=== PATIENT | female | born 1950 | race Caucasian/White ===

== ENCOUNTER 2019-01-21 21:46 | Emergency (ER) | payer OTHER, MEDICAID ==
--- NOTE | 2019-01-21 21:51 | EDPHY ---
H & P Time Seen by Provider: 01/21/19 21:47 Constitutional: Initial Vital Signs Temperature (C) 36.2 C 01/21/19 21:50 Heart Rate 101 H 01/21/19 21:50 Respiratory Rate 20 01/21/19 21:50 Blood Pressure 163/108 H 01/21/19 21:50 O2 Sat (%) 95 01/21/19 21:50 O2 Delivery Mode Room Air Allergies/Adverse Reactions: No Known Allergies Allergy (Unverified 01/21/19 21:50) Home Medications: Medication Instructions Recorded Diazepam [Valium 5 MG (*)] 01/21/19 chlorproMAZINE HCL [Chlorpromazine 01/21/19 HCl] traZODone [traZODONE 50MG (*)] 01/21/19 Medical Decision Making ED Course/Re-evaluation: CHIEF COMPLAINT: alcohol intoxication HISTORY OF PRESENT ILLNESS: The patient is a 68 y/o female with a history of alcoholism arriving via EMS for alcohol intoxication today. The patient is a chronic alcoholic. Patient drinks on a daily basis and obtains whatever alcohol is available. Patient was found by her sister who called EMS system. Patient has had multiple ER visits over the last several years for the same complaint. Patient denies any injuries denies loss of consciousness denies any recent trauma. Patient denies coingestion patient denies suicidal or homicidal behavior. No fever, headache, body aches, lightheadedness, chest pain, heart palpitations, shortness of breath , cough, abdominal pain, urinary or bowel complaints, numbness, paresthesias. REVIEW OF SYSTEMS: A 10 point review of systems was performed and is negative with the exception of the elements mentioned in the history of present illness. PHYSICAL EXAM: General Appearance: Slurred speech, appears intoxicated, alert, well hydrated, and non-toxic appearing. Head: Atraumatic without scalp tenderness or obvious injury Eyes: Pupils equal, round, reactive to light and accommodation, EOMI, no trauma , no injection. Ears: Clear bilaterally, no perforation, normal landmarks Nose: Atraumatic, no rhinorrhea, clear. Throat: There is no erythema or exudates, no lesions, normal tonsils, mucus membranes moist. Neck: Supple, 2+ carotid upstroke, non-tender, no lymphadenopathy. Respiratory: No retractions, no distress, no wheezes, and no accessory muscle use. Lungs are clear to auscultation bilaterally. Cardiovascular: Regular rate and rhythm, no murmurs, rubs, or gallops. Bilateral carotid, radial, dorsalis pedis, and posterior tibial pulses intact. Good capillary refill all extremities. Gastrointestinal: Abdomen is soft, non-tender, non-distended, no masses, no rebound, no guarding, no peritoneal signs. Musculoskeletal: Normal active ROM of all extremities, atraumatic. Neurological: Alert and interactive. The patient has normal DTRs and non-focal cranial nerves, motor, sensory, and cerebellar exam. Skin: No rashes, good turgor, no nodules on palpation. PAST MEDICAL HISTORY: Alcoholism PAST SURGICAL HISTORY: Denies SOCIAL HISTORY: Single, not employed, lives in [place] DIAGNOSTICS/PROCEDURES/CRITICAL CARE TIME: Not indicated. DIFFERENTIAL DIAGNOSIS: The differential diagnosis for the patient's altered mental status included but was not limited to hypoglycemia, infectious process, electrolyte abnormality, head injury, neurologic process, anemia, cardiac process, and intoxicants. MEDICAL DECISION MAKING: The patient is a 68 y/o female with a history of alcoholism arriving via EMS for alcohol intoxication today. On exam the patient is slurring her speech and appears intoxicated. There are no signs of trauma or injuries. She will need to be observed in this emergency department until she is sober. 2210: Patient care turned over to Dr. Moody at [facility]. I serially examined this patient since the patient's arrival here in the emergency department. The patient continues to become more and more sober with each examination. (Robert Osman) 2239: Serum alcohol 246. Patient signed over to me at 10:00 p.m.. Patient pending sobriety. Once more sober patient be safely discharged from the emergency room. 0111: Patient ambulated well to the bathroom and is now sober. Stable gait. Answers questions appropriately. Would like to go home. Her stepsister is at bedside and will be taking her home and staying with her tonight. We discussed return precautions. They understand to return to the emergency room if worsening symptoms includes vomiting, passing out, not doing well. 0315: Of note this patient started complaining of a headache during her ER visit. She was initially found down highly intoxicated her house. Due to being found down and complaining of a headache I did perform CT scan of her head without contrast which is unremarkable no evidence of acute bleed or skull fracture subdural epidural. This was faxed me by direct Radiology at time 3:08 a.m.. Patient re-evaluated 3:15 a.m. She is requesting discharge. She ambulated well. She is clinically sober. We discussed return precautions. (Ian Moody) - Data Points Laboratory Results: Laboratory Results 01/21/19 21:59 01/21/19 21:59 01/21/19 01/21/19 21:59 21:59 WBC 4.05 10^3/uL 10^3/uL (3.80-9.50) RBC 4.18 10^6/uL 10^6/uL (4.18-5.33) Hgb 16.1 g/dL g/dL (12.6-16.3) Hct 47.1 % H % (38.0-47.0) MCV 112.7 fL H fL (81.5-99.8) MCH 38.5 pg H pg (27.9-34.1) MCHC 34.2 g/dL g/dL (32.4-36.7) RDW 12.8 % % (11.5-15.2) Plt Count 157 10^3/uL 10^3/uL (150-400) MPV 9.3 fL fL (8.7-11.7) Neut % (Auto) 52.6 % % (39.3-74.2) Lymph % (Auto) 34.6 % % (15.0-45.0) Bailey % (Auto) 10.9 % % (4.5-13.0) Eos % (Auto) 0.7 % % (0.6-7.6) Baso % (Auto) 1.0 % % (0.3-1.7) Nucleat RBC Rel Count 0.0 % % (0.0-0.2) Absolute Neuts (auto) 2.13 10^3/uL 10^3/uL (1.70-6.50) Absolute Lymphs (auto) 1.40 10^3/uL 10^3/uL (1.00-3.00) Absolute Monos (auto) 0.44 10^3/uL 10^3/uL (0.30-0.80) Absolute Eos (auto) 0.03 10^3/uL 10^3/uL (0.03-0.40) Absolute Basos (auto) 0.04 10^3/uL 10^3/uL (0.02-0.10) Absolute Nucleated RBC 0.00 10^3/uL 10^3/uL (0-0.01) Immature Gran % 0.2 % % (0.0-1.1) Immature Gran # 0.01 10^3/uL 10^3/uL (0.00-0.10) Sodium 140 mEq/L mEq/L (135-145) Potassium 4.4 mEq/L mEq/L (3.5-5.2) Chloride 103 mEq/L mEq/L (97-110) Carbon Dioxide 27 mEq/l mEq/l (22-31) Anion Gap 10 mEq/L mEq/L (6-14) BUN 9 mg/dL mg/dL (7-23) Creatinine 0.8 mg/dL mg/dL (0.6-1.0) Estimated GFR > 60 Glucose 129 mg/dL H mg/dL (70-100) Calcium 9.1 mg/dL mg/dL (8.5-10.4) Ethyl Alcohol 246 mg/dL H mg/dL (0-10) Medications Given: Discontinued Medications Acetaminophen (Tylenol) 1,000 mg PO EDNOW ONE Stop: 01/22/19 02:22 Last Admin: 01/22/19 02:22 Dose: 1,000 mg Departure - Departure Disposition: Home, Routine, Self-Care Clinical Impression: Alcoholic intoxication Qualifiers: Complication of substance-induced condition: uncomplicated Qualified Code(s): F10.920 - Alcohol use, unspecified with intoxication, uncomplicated Condition: Good Instructions: Alcohol Intoxication (ED), Abuse of Alcohol (ED) Additional Instructions: 1. Please refrain from abusing alcohol. 2. Return to the emergency department immediately for fever, vomiting, confusion , headache, abdominal pain or other worsening of condition. 3. Followup with your primary care physician within 72 hours for reevaluation. Referrals: [facility] [Outside] - As per Instructions [facility] [Outside] - As per Instructions Report Scribed for: Robert Osman Report Scribed by: Tasha N Clemenson Date of Report: 01/21/19 Time of Report: 21:51
[2019-01-21 22:05] LABS: PLATELET COUNT 157 10^3/uL (150-400)
[2019-01-22] MEDS ORDERED: ACETAMINOPHEN 500 MG TAB ONE (02:21)
[2019-01-22] MEDS ORDERED: ACETAMINOPHEN 500 MG TAB PO ONE (02:21)
[2019-01-22 03:25] VITALS: BP 142/86
== END 2019-01-22 03:25 | disposition home or self-care (01) ==
LOC: EDUNIT#
DX: F10.129 Alcohol abuse with intoxication, unspecified (principal); Y90.8 Blood alcohol level of 240 mg/100 ml or more
CPT/HCPCS: G0480